=== PATIENT | female | born 1970 | race Caucasian/White ===

== ENCOUNTER 2016-05-05 06:39 | Day surgery (SDC) | payer MEDICARE ==
[~2016-05-05] VITALS: Ht 170.2 cm; Wt 72.6 kg
[~2016-05-05 06:39] MED LIST: ACET325T9 PO; ALPR0.5T6 PO; CEFAZOLIN 1GM IVPB FOR OMNI 50 ML IV PRN; CHOL100013 PO; CLON0.5T3 PO; CYCL10TA2 PO; DEXL60CA PO; FISH1CAP PO; POTA10TA10 PO; SUCR1TAB29 PO; TOLT4CAP PO; TRAZ150T55 PO; VENL150C PO; VITA150T PO
[2016-05-05] MEDS ORDERED: FENTANYL PF 100 MCG/2 ML VIAL. IV PRN (07:00)
[2016-05-05] MEDS ORDERED: IV RINGERS,LACTATED 1000ML 1,000 ML IV SCH (07:00)
[2016-05-05] MEDS ORDERED: HYDROMORPHONE 2 MG/ML VIAL. IV PRN (07:00)
[2016-05-05] MEDS ORDERED: ONDANSETRON PF 4 MG/2 ML VIAL. IV PRN (07:00)
[2016-05-05] MEDS ORDERED: LIDOCAINE 1% 1 ML SYRINGE. ID PRN (07:00)
[2016-05-05] MEDS ORDERED: PROCHLORPERAZINE 10 MG/2 ML VIAL. IV PRN (07:00)
[2016-05-05] MEDS ORDERED: BUPIVACAINE-EPI 0.25%-1:200000 MPF 30 ML VIAL. ONE (07:43)
[2016-05-05] MEDS ORDERED: SURGICEL HEMOSTAT 4X8 EACH. ONE (07:43)
[2016-05-05] MEDS ORDERED: ONDANSETRON PF 4 MG/2 ML VIAL. ONE (08:00)
[2016-05-05] MEDS ORDERED: FAMOTIDINE 20 MG/2 ML VIAL ONE (08:00)
[2016-05-05] MEDS ORDERED: PROPOFOL 20 ML IV ONE (08:00)
[2016-05-05] MEDS ORDERED: ROCURONIUM 50 MG/5 ML VIAL. ONE (08:02)
[2016-05-05] MEDS ORDERED: FENTANYL PF 100 MCG/2 ML VIAL. ONE (08:02)
[2016-05-05] MEDS ORDERED: NEOSTIGMINE METHYLSULFATE 5 MG/5 ML SYRINGE. ONE (08:35)
[2016-05-05] MEDS ORDERED: DEXAMETHASONE SOD PHOS 20 MG/5 ML VIAL. ONE (08:35)
[2016-05-05] MEDS ORDERED: KETOROLAC 30 MG/ML SYRINGE FOR OR. INJ ONE (08:36)
[2016-05-05] MEDS ORDERED: GLYCOPYRROLATE 1 MG/5 ML VIAL. ONE (08:36)
--- NOTE | 2016-05-05 08:51 | PDOC ---
BRIEF OPERATIVE NOTE Pre-Op Diagnosis Left adnexal mass Post-Op Diagnosis Left complex ovarian cyst [facility] Fuentes Anesthesia Type: General Blood Loss 5 ml Specimens Obtained Left fallopian tube and Left ovary Findings complex NYDIA cyst Complications none Additional Remarks ptMARISOL Sutton Jr, MD May 05, 2016 08:51
--- NOTE | 2016-05-05 08:52 | DISCH ---
DISCHARGE INSTRUCTIONS Condition on Discharge Condition on Discharge: Stable Activity After Discharge Activity Instructions for Disc: Activity as tolerated Lifting Instructions after Dis: No heavy lifting Driving Instructions after Dis: Do not drive today Diet after Discharge Diet after Discharge: Regular Contacting the DRPasquale after DC Call your doctor for: Concerns you may have Follow-Up Follow up with: Dr. Fuentes in 1 week MARISOL FUENTES Jr, MD May 05, 2016 08:52
[2016-05-05] MEDS: FENTANYL PF 100 MCG/2 ML VIAL. IV PRN ×2 (08:58→09:08)
[2016-05-05 09:03] LABS: NEG OBC UR NEG; POS OBC UR POS
[2016-05-05] MEDS ORDERED: ONDA8TAB9 PO (09:24)
[2016-05-05] MEDS: MORPHINE SULFATE 2 MG/ML DISP.SYRIN. IV PRN ×2 (09:30→09:40)
--- NOTE | 2016-05-05 09:48 | OP ---
DATE OF SURGERY: 05/05/2016 PREOPERATIVE DIAGNOSIS: Left adnexal mass. POSTOPERATIVE DIAGNOSIS: Left complex ovarian cyst. PROCEDURE: Laparoscopic LSO. SURGEON: Ruel Fuentes MD ANESTHESIA: GETA. ESTIMATED BLOOD LOSS: 5 mL. COMPLICATIONS: None. FINDINGS: Normal size uterus, normal right fallopian tube and ovary, left complex ovarian cyst. SUMMARY: A 45-year-old female with abdominal pain and left adnexal mass. The patient was counseled on laparoscopic LSO. Risks, benefits and expectations and voiced a clear understanding to proceed. DESCRIPTION OF PROCEDURE: The patient was taken to surgery suite and placed in dorsal lithotomy position. She was prepped with Betadine solution for vaginal prep and ChloraPrep for abdominal prep. After adequate anesthesia, attention was placed on abdomen which a low transverse skin incision made with scalpel. Veress needle was then placed through the infraumbilical incision site. The abdomen was allowed to insufflate up to 1-1/2 liters of CO2 gas. The Veress needle was then removed, 5 mm trocar was placed. Scope was positioned. The uterus appeared normal size. Right fallopian tube and ovary appeared normal. Left fallopian tube appeared normal. The left ovary demonstrated a complex cyst. Two incisions were made in the left lower quadrant in which an 11 mm and 5 mm trocars were placed with the aid of the EnSeal device and graspers. The left infundibulopelvic ligament was coagulated and dissected. The left uteroovarian pedicle, the left fallopian tube and ovary were coagulated and dissected and removed from the left adnexa. The pedicles were all hemostatic. The specimen was placed in the Endobag and removed from the abdomen. The suction irrigation was utilized to verify good hemostasis. A small amount of normal saline was left in posterior cul-de-sac. The trocars were then removed under direct visualization. The abdomen was allowed to deflate as much as possible along with mechanical manipulation. The 11 mm port was closed at the fascial layer using 2-0 Vicryl suture in a [id number] manner. The three skin incisions were reapproximated using 4-0 Vicryl suture in subcuticular manner. 0.25% Marcaine with epinephrine was injected at each incision site. The patient tolerated the procedure well and was taken to recovery room in stable condition. Sponge and needle counts correct x 3. RUEL FUENTES MD DR: ERICA/vaishnavi JOB#: [id number] / [id number]
[2016-05-05 10:10] VITALS: BP 108/55
--- NOTE | 2016-05-06 15:41 | PATHOLOGY ---
PATHOLOGY REPORT * * * * * * * * FINAL DIAGNOSIS: Fallopian tube and ovary, laparoscopic left salpingo-oophorectomy: - Hemorrhagic corpus luteal cyst of ovary. - Few small cystic follicles of ovary. - Cystic [place]ard rests of fallopian tube. COMMENT: There is no evidence of malignancy. (JPM:csd; d/t: 05/06/2016) REPORT ELECTRONICALLY SIGNED BY: Loi Mosquera M.D. DATE/TIME: 05/06/2016 15:41 * * * * * * * * GROSS PATHOLOGY: The specimen is received in formalin, labeled "Chaparrita Kauffman and left tube and ovary." Received is an 11 g adnexal specimen, which consists of a 4.8 cm in length fimbriated fallopian tube with a 0.5 cm diameter loosely attached to a 3.8 x 2.7 x 1.5 cm ovary. The external surface of the fallopian tube is red-pink, wrinkled, and displays multiple thin-walled, uniloculated, and intact paratubal cysts filled with clear serous fluid and range from 0.2-0.7 cm in greatest dimension. Sectioning reveals a pinpoint lumen. The external surface of the ovary is pink-delgado and cerebriform. Sectioning reveals several thin-walled and uniloculated cysts filled with clear serous fluid and ranging from 0.2-1.7 cm in greatest dimension. No papillary excrescences are grossly identified. The remaining ovarian stroma is pink-delgado and displays several ordonez yellow and hemorrhagic corpora lutea and several white-delgado corpora albicantia. Also received is a 1.9 x 1.2 x 0.5 cm delgado to dark red possible blood coagulum. Senior Budget Analyst sections are submitted as follows: A1 fallopian tube to include paratubal cysts A2-A4 ovary to include cysts A5 blood coagulum (TTL; 05/05/2016) INITIAL CPT CODE(S): A; 81353 Professional services performed by [email or web address] at [address] [address] Technical services performed by [facility] at [address] [place] [address], [address], [place] [address]. SPECIMEN(S) RECEIVED: A.Left tube and ovary CLINICAL HISTORY: Left ovarian cyst PATIENT: CHAPARRITA KAUFFMAN /AGE: 406/15/1970 (Age: 45) PATIENT #: [id number] ALT CASE #: SPECIMEN COLLECTION DATE: 05/05/2016 SPECIMEN RECEIVED DATE: 05/05/2016 [facility] - [address] [place] [address] - PHONE: [phone] * * * END OF REPORT * * *
== END 2016-05-05 10:32 | disposition home or self-care (01) ==
LOC: SURG 06:39
PROVIDERS: ATTEND Obstetrics & Gynecology
DX: N83.292 Other ovarian cyst, left side (principal); E78.00 Pure hypercholesterolemia, unspecified; Z87.442 Personal history of urinary calculi; F41.9 Anxiety disorder, unspecified; F32.9 Major depressive disorder, single episode, unspecified
CPT/HCPCS: 58661; 81025; A4215; C1782; J0690; J0780; J1100; J1885; J2270; J2405; J2704; J2710; J3010; J3490; J7030; S0028

== ENCOUNTER → 2016-11-17 | Day surgery (SDC) | payer MEDICARE ==
[~2016-11-17] MED LIST changes: -CEFAZOLIN 1GM IVPB FOR OMNI 50 ML IV PRN; -DEXL60CA PO; +DEXL60CA2 PO; +HYDROmorphone 2 MG/ML VIAL IV PRN; +IV RINGERS,LACTATED 1000ML 1,000 ML IV SCH; +LIDOCAINE 1% 1 ML SYRINGE. ID PRN; +MORPHINE SULFATE 2 MG/ML DISP.SYRIN. IV PRN; +ONDA8TAB9 PO; +ONDANSETRON PF 4 MG/2 ML VIAL. IV PRN; +OXYB5TAB7 PO; -POTA10TA10 PO; +POTA10TA12 PO; +PROCHLORPERAZINE 10 MG/2 ML VIAL. IV PRN; +PROPOFOL 20 ML IV ONE; -SUCR1TAB29 PO; +SUCR1TAB35 PO; +TRAZ150T49 PO; -TRAZ150T55 PO; +fentaNYL PF VIAL 100 MCG/2 ML VIAL IV PRN
[2016-11-17 14:17] VITALS: BP 129/76
== END | disposition home or self-care (01) ==
LOC: ENDOS 12:04
PROVIDERS: ATTEND Internal Medicine Gastroenterology
DX: K29.50 Unspecified chronic gastritis without bleeding (principal); E78.00 Pure hypercholesterolemia, unspecified; Z87.442 Personal history of urinary calculi; F41.9 Anxiety disorder, unspecified; F32.9 Major depressive disorder, single episode, unspecified; Z88.8 Allergy status to other drugs, medicaments and biological substances
CPT/HCPCS: 43235; J2704

== ENCOUNTER → 2017-01-02 | Day surgery (SDC) | payer MEDICARE ==
[~2017-01-02] VITALS: Ht 170.2 cm; Wt 76.7 kg
[~2017-01-02] MED LIST changes: +BUPIVAC MPF-EPI 0.5%-1:200000 30 ML VIAL. ONE; +DESFLURANE 31 TO 60 MINUTES IH ONE; +DEXAMETHASONE SOD PHOS 20 MG/5 ML VIAL. ONE; +DOCU50CA9 PO; +GLYCOPYRROLATE 1 MG/5 ML VIAL. ONE; +IOHEXOL 300 MG/ML 50 ML VIAL. ONE; -IV RINGERS,LACTATED 1000ML 1,000 ML IV SCH; +KETOROLAC 30 MG/ML INJ FOR OR. INJ ONE; -LIDOCAINE 1% 1 ML SYRINGE. ID PRN; +LIDOCAINE 1% PF 2 ML VIAL. ID PRN; +LIDOCAINE 2% PF Vial for OR 5 ML VIAL. ONE; +NEOSTIGMINE 10 MG/10 ML VIAL. ONE; +ONDANSETRON PF 4 MG/2 ML VIAL. ONE; +OXYC-323 PO; +PROM25TA10 PO; +PROMETHAZINE 12.5 MG TABLET. PO PRN; +ROCURONIUM 100 MG/10 ML VIAL. ONE; +SCOPOLAMINE 1.5MG PATCH. TD ONE; +SUCCINYLCHOLINE 200 MG/10 ML VIAL. ONE; +SURGICEL HEMOSTAT 4X8 EACH. ONE; +fentaNYL PF VIAL 100 MCG/2 ML VIAL ONE; +oxyCODONE/APAP 5/325 1 TAB TABLET PO ONE
[2017-01-02] MEDS: IV RINGERS,LACTATED 1000ML 1,000 ML IV SCH ×2 (07:25→10:25)
[2017-01-02 07:29] LABS: NEG OBC UR NEG; POS OBC UR POS
[2017-01-02 07:31] LABS: BASO % 1 % (0-3); EOS % 4 % (0-3); HEMATOCRIT 35.9 % (36.0-47.0); HEMOGLOBIN 12.1 g/dL (12.0-15.5); LYMPH # 1.5 x10^3/uL (1.0-4.8); LYMPH % 37 % (24-48); MEAN CORPUSCULAR HEMOGLOBIN 31 pg (25-35); MEAN CORPUSCULAR HGB CONC 34 g/dL (31-37); MEAN CORPUSCULAR VOLUME 91 fL (79-100); MONO % 9 % (0-9); NEUT % 49 % (31-73); PLATELET COUNT 216 x10^3/uL (140-400); RED BLOOD COUNT 3.95 x10^6/uL (3.50-5.40); RED CELL DISTRIBUTION WIDTH 13.3 % (11.5-14.5); WHITE BLOOD COUNT 4.1 x10^3/uL (4.0-11.0)
[2017-01-02 07:37] LABS: CALCIUM 8.9 mg/dL (8.5-10.1); CREATININE 0.8 mg/dL (0.6-1.0); GFR 76.6; POTASSIUM 3.9 mmol/L (3.5-5.1)
[2017-01-02 07:43] LABS: ALBUMIN 3.4 g/dL (3.4-5.0); TOTAL BILIRUBIN 0.3 mg/dL (0.2-1.0)
--- NOTE | 2017-01-02 08:44 | RAD ---
Intraoperative cholangiogram, 3 views, 01/02/2017: History: Cholecystectomy Contrast has been injected into the cystic duct remnant. 13 seconds of fluoroscopy time was utilized. Contrast extends into the duodenum. No filling defect is seen in the common duct to suggest a retained calculus. There is reflux of a small amount of contrast into a portion of the pancreatic duct. The incompletely opacified intrahepatic ducts are unremarkable. Minimal contrast extravasation at the gallbladder fossa level is probably a technical basis related to the catheter insertion site in the cystic duct. IMPRESSION: No evidence of a retained common duct calculus.
--- NOTE | 2017-01-02 09:01 | OP ---
DATE OF SURGERY: 01/02/2017 PREOPERATIVE DIAGNOSIS: Biliary dyskinesia. POSTOPERATIVE DIAGNOSIS: Biliary dyskinesia. PROCEDURE: Laparoscopic cholecystectomy with cholangiogram. SURGEON: Anderson Haas MD. ANESTHESIA: General endotracheal. ESTIMATED BLOOD LOSS: 10 mL. INTRAVENOUS FLUIDS: 600. INDICATIONS: The patient is a 46-year-old who has a history of abdominal pain and nausea, brought for cholecystectomy. OPERATIVE FINDINGS: The liver was smooth and sharp. The gallbladder was supple. Cholangiograms were normal. Visual inspection of the remainder of the abdomen failed to reveal obvious abnormalities, say with few filmy adhesions in the right lower quadrant. DESCRIPTION OF PROCEDURE: The patient brought to the operating suite, given a general endotracheal anesthetic. Abdomen was prepped and draped in usual sterile fashion. An infraumbilical incision was infiltrated with local anesthetic, incised and a 5-mm Visiport used to carefully gain access into the abdominal cavity, taking care to avoid injury to abdominal contents. Pneumoperitoneum was established. Camera inserted and inspection carried out with results as noted above. With the table in reverse Trendelenburg rolled to left, the epigastric and midclavicular ports were placed under direct vision. The lateral port location was used for an "alligator" grasper. The gallbladder was retracted superolaterally and dissection revealed a superficial cystic artery, which was isolated, clipped and divided. This allowed visualization of the cystic duct. It was clipped on the gallbladder side. Cholangiograms were made. These were normal. In light of this, the catheter was removed. The cystic duct was clipped x 3 and divided taking care to avoid injury or compromise of the common duct. A small secondary and tertiary vessel were identified and clipped, divided and gallbladder freed from the bed and placed in an EndoCatch bag. Good hemostasis was present in the fossa and no evidence of bile leak was seen. Table returned to level. Gallbladder delivered through the epigastric incision. Epigastric incision closed with interrupted 0 Vicryl suture. Intra-abdominal pressure decreased to 6 cm of water. No bleeding from the epigastric closure or from the midclavicular port site after its removal or from the previous lateral grasper site. Camera slowly removed, no bleeding seen. Skin incisions closed with subcuticular 4-0 Monocryl. Steri-Strips and sterile dressings applied. The patient awakened from her anesthetic and taken to the recovery room in satisfactory condition. ANDERSON HAAS MD DR: Heather JOB#: [id number] / [id number]
[2017-01-02] MEDS: fentaNYL PF VIAL 100 MCG/2 ML VIAL IV PRN ×2 (09:08→09:21)
--- NOTE | 2017-01-02 09:19 | PDOC ---
BRIEF OPERATIVE NOTE Date: Jan 02, 2017 Pre-Op Diagnosis biliary dyskinesia Post-Op Diagnosis same Procedure Performed l/s cholecystectomy with cholangiograms Surgeon Ignacio COBIAN Anesthesia Type: General Blood Loss 10cc IV Fluid 600cc Specimens Obtained GB Findings supple GB, normal grams Complications none OPerative Note Wk # [id number] ANDERSON HAAS MD Jan 02, 2017 09:19
--- NOTE | 2017-01-02 09:22 | DISCH ---
DISCHARGE INSTRUCTIONS Condition on Discharge Condition on Discharge: Stable Activity After Discharge Activity Instructions for Disc: Activity as tolerated, Avoid exertion Driving Instructions after Dis: Do not drive (3-4 days) Diet after Discharge Diet after Discharge: Regular Wound Incision Care Wound/Incision Care: Ice to area for comfort Other wound/incision instructi: bennie shower Monday Follow-Up Follow up with: Ignacio next week ANDERSON HAAS MD Jan 02, 2017 09:22
[2017-01-02 11:30] VITALS: BP 141/69
--- NOTE | 2017-01-03 15:00 | PATHOLOGY ---
PATHOLOGY REPORT * * * * * * * * FINAL DIAGNOSIS: Gallbladder, laparoscopic cholecystectomy: - Cholelithiasis. - Chronic cholecystitis. COMMENT: There is no evidence of malignancy. (JPM:; 01/03/2017) REPORT ELECTRONICALLY SIGNED BY: Loi Mosquera M.D. DATE/TIME: 01/03/2017 14:59 * * * * * * * * GROSS PATHOLOGY: Received in formalin labeled "Chaparrita Kauffman, gallbladder and its contents," is an 8.6 x 4.1 x 2.5 cm, intact gallbladder with light blue to dark green, highly vascular serosal surfaces. Opening the gallbladder reveals dark delgado, velvety mucosa and an average wall thickness of 0.1 cm. Calculi are present, measuring 0.1-0.3 cm in maximum dimension, presenting a light yellow and granular appearance, and feeling friable to the touch. No masses are noted grossly. Strap Machine Operator Automatic sections from the body and fundus are submitted along with the proximal margin in cassette A1. (TSD; 01/02/2017) INITIAL CPT CODE(S): A; 73544 Professional services performed by [facility] [place] [address] Technical services performed by [facility] at [address] [place] [address], [address] [address]. SPECIMEN(S) RECEIVED: A.Gallbladder and its contents CLINICAL HISTORY: Biliary dyskinesia PATIENT: CHAPARRITA KAUFFMAN /AGE: 406/15/1970 (Age: 46) PATIENT #: [id number] ALT CASE #: SPECIMEN COLLECTION DATE: 01/02/2017 SPECIMEN RECEIVED DATE: 01/02/2017 [facility] - [facility] [place] [address] - PHONE: [phone] * * * END OF REPORT * * *
== END | disposition home or self-care (01) ==
LOC: SURG 06:33
PROVIDERS: ATTEND Surgery
DX: K82.8 Other specified diseases of gallbladder (principal); E78.00 Pure hypercholesterolemia, unspecified; F41.9 Anxiety disorder, unspecified; F32.9 Major depressive disorder, single episode, unspecified; Z87.442 Personal history of urinary calculi; Z88.8 Allergy status to other drugs, medicaments and biological substances; Z98.890 Other specified postprocedural states
CPT/HCPCS: 36415; 47563; 74300; 80048; 81025; 82040; 82247; 85025; C1769; J0330; J0690; J0780; J1100; J1885; J2405; J2704; J2710; J3010; J3490; J7030; Q9967; 88304; J2001

== ENCOUNTER → 2017-10-12 | Outpatient (CLI) | payer MEDICARE ==
[2017-10-12 13:25] LABS: ADD MAN DIFF? NO
[2017-10-12 13:39] LABS: BASO # 0.1 x10^3/uL (0.0-0.2); BASO % 1 % (0-3); EOS # 0.2 x10^3/uL (0.0-0.7); EOS % 3 % (0-3); HEMATOCRIT 36.6 % (36.0-47.0); HEMOGLOBIN 12.6 g/dL (12.0-15.5); LYMPH # 1.9 x10^3/uL (1.0-4.8); LYMPH % 28 % (24-48); MEAN CORPUSCULAR HEMOGLOBIN 30 pg (25-35); MEAN CORPUSCULAR HGB CONC 35 g/dL (31-37); MEAN CORPUSCULAR VOLUME 88 fL (79-100); MONO # 0.5 x10^3/uL (0.0-1.1); MONO % 8 % (0-9); NEUT # 4.3 x10^3uL (1.8-7.7); NEUT % 61 % (31-73); PLATELET COUNT 272 x10^3/uL (140-400); RED BLOOD COUNT 4.18 x10^6/uL (3.50-5.40); RED CELL DISTRIBUTION WIDTH 13.8 % (11.5-14.5)
[2017-10-12 13:54] LABS: CHOLESTEROL 157 mg/dL (0-200); CHOLESTEROL/HDL RATIO 4.2; HDLC 37 mg/dL (40-60); LDLC 68 mg/dL (0-100); NON-HDL CHOLESTEROL 120 mg/dL (0-129); TRIGLYCERIDES 262 mg/dL (0-150); VLDLC 52 mg/dL (0-40)
[2017-10-12 14:03] LABS: THYROID STIM HORMONE (TSH) 2.047 uIU/mL (0.358-3.74)
[2017-10-12 14:03] LABS: FREE T4 0.83 ng/dL (0.76-1.46)
== END | disposition home or self-care (01) ==
LOC: LAB 13:12
DX: Z01.419 Encounter for gynecological examination (general) (routine) without abnormal findings (principal); E34.9 Endocrine disorder, unspecified; Z79.899 Other long term (current) drug therapy
CPT/HCPCS: 36415; 80061; 84439; 84443; 85025

== ENCOUNTER → 2018-06-07 | Outpatient (CLI) | payer MEDICARE ==
[2017-01-02 11:30] VITALS: BP 141/69
[~2018-06-07] MED LIST changes: -BUPIVAC MPF-EPI 0.5%-1:200000 30 ML VIAL. ONE; +CLON0.5T11 PO; -CLON0.5T3 PO; -DESFLURANE 31 TO 60 MINUTES IH ONE; -DEXAMETHASONE SOD PHOS 20 MG/5 ML VIAL. ONE; -GLYCOPYRROLATE 1 MG/5 ML VIAL. ONE; -HYDROmorphone 2 MG/ML VIAL IV PRN; +IOHEXOL 300 MG/ML 100ML VIAL. IV ONE; -IOHEXOL 300 MG/ML 50 ML VIAL. ONE; -KETOROLAC 30 MG/ML INJ FOR OR. INJ ONE; -LIDOCAINE 1% PF 2 ML VIAL. ID PRN; -LIDOCAINE 2% PF Vial for OR 5 ML VIAL. ONE; -MORPHINE SULFATE 2 MG/ML DISP.SYRIN. IV PRN; -NEOSTIGMINE 10 MG/10 ML VIAL. ONE; -ONDANSETRON PF 4 MG/2 ML VIAL. IV PRN; -ONDANSETRON PF 4 MG/2 ML VIAL. ONE; -OXYC-323 PO; +OXYC1TAB15 PO; -PROCHLORPERAZINE 10 MG/2 ML VIAL. IV PRN; -PROMETHAZINE 12.5 MG TABLET. PO PRN; -PROPOFOL 20 ML IV ONE; -ROCURONIUM 100 MG/10 ML VIAL. ONE; -SCOPOLAMINE 1.5MG PATCH. TD ONE; -SUCCINYLCHOLINE 200 MG/10 ML VIAL. ONE; -SURGICEL HEMOSTAT 4X8 EACH. ONE; -fentaNYL PF VIAL 100 MCG/2 ML VIAL IV PRN; -fentaNYL PF VIAL 100 MCG/2 ML VIAL ONE; -oxyCODONE/APAP 5/325 1 TAB TABLET PO ONE
--- NOTE | 2018-06-07 12:42 | RAD ---
CT of the abdomen and pelvis with contrast 06/07/2018 INDICATION: Epigastric pain COMPARISON STUDY: None Technique: Multidetector CT imaging of the abdomen and pelvis is obtained following the administration of IV contrast. FINDINGS: Visualized lung bases demonstrate no acute abnormality. The liver is unremarkable in appearance. Prior cholecystectomy is noted. The spleen, adrenal glands, and pancreas are grossly unremarkable. Some atrophic change involving the pancreas is noted. There is a 1.4 cm nonobstructing stone in the inferior pole of the left kidney. There is no evidence of obstructive uropathy or ureteral stone. Right kidney is grossly unremarkable no evidence of bowel obstruction is seen. No inflammatory changes involving the bowel are identified. Mild distal colonic and sigmoid colonic diverticulosis is seen. Visualized bladder is unremarkable. No free fluid or free air seen in the abdomen and pelvis. No acute osseous changes are seen. IMPRESSION: 1. No evidence of acute intra-abdominal normality 2. 1.4 cm nonobstructing stone, inferior pole left kidney 3. Descending and sigmoid colonic diverticulosis without evidence of acute diverticulitis 4. Prior cholecystectomy CT DOSING PQRS STATEMENT: One or more of the following individualized dose reduction techniques were utilized for this examination: 1. Automated exposure control 2. Adjustment of the mA and/or kV according to patient size 3. Use of iterative reconstruction technique Electronically signed by: Bethel Pierce MD (06/07/2018 12:39 PM) [id number]
== END | disposition home or self-care (01) ==
LOC: CT 09:54
DX: K57.30 Diverticulosis of large intestine without perforation or abscess without bleeding (principal); N20.0 Calculus of kidney; Z90.49 Acquired absence of other specified parts of digestive tract
CPT/HCPCS: 74177; Q9967